=== PATIENT | male | born 1975 | race Caucasian/White ===

== ENCOUNTER 2021-05-27 08:35 | Day surgery (SDC) | payer MEDICAID ==
[2021-05-26 12:58] LABS: COVID AG,FIA SOURCE NASOPHARYNGEAL
[~2021-05-27] VITALS: Ht 170.2 cm; Wt 72.7 kg
[~2021-05-27 08:35] MED LIST: FLUC200T85 PO; SODIUM CHLORIDE 0.9% 1,000 ML IV ONE; SODIUM CHLORIDE 0.9% 1,000 ML ONE
[2021-05-27] MEDS ORDERED: PROPOFOL 1% 20 ML VIAL IVP ONE (08:36)
[2021-05-27] MEDS ORDERED: LIDOCAINE/PF 2% 5 ML VIAL IM ONE (08:36)
[2021-05-27] MEDS ORDERED: OXYGEN THERAPY IH SCH (20:00)
== END 2021-05-27 13:05 | disposition home or self-care (01) ==
LOC: SURGERY 08:35
PROVIDERS: ATTEND Specialist
DX: Z12.11 Encounter for screening for malignant neoplasm of colon (principal); Z90.49 Acquired absence of other specified parts of digestive tract; F12.90 Cannabis use, unspecified, uncomplicated; Z88.0 Allergy status to penicillin
CPT/HCPCS: 45378; 87426; C9803; J2704; J3490; J7030